=== PATIENT | female | born 1965 | race Caucasian/White ===

== ENCOUNTER 2019-04-11 13:27 | Emergency (ER) | payer SELFPAY ==
[2019-04-11 13:40] VITALS: BP 151/114; PULSE 84; RESP 18; TEMP 36.7; O2SAT 95; BMI 38.9
--- NOTE | 2019-04-11 14:04 | ED_ITS ---
HPI - General Adult General: Chief complaint: General Medical Stated complaint: Swollen legs Time Seen by Provider: 04/11/19 14:00 History of Present Illness: HPI narrative: Patient comes in today for concerns of being out of her medication for 2 to 3 weeks. Patient has trigeminal neuralgia and peripheral edema. Patient routinely takes Lasix 20 mg daily along with gabapentin 1200 mg 3 times a day. Patient reports no acute distress, but feels like she started to have a flareup of her trigeminal neuralgia. Patient appears well. Patient appears in mild to moderate pain. Associated symptoms: Reports headache(s) Review of Systems General: Reports: 10 or more systems reviewed and unremarkable except in HPI and below Neuro: Reports: headache Physical Exam Const: COMMON NORMALS: no apparent distress and oriented x3 GENERAL APPEARANCE: cooperative HENMT: COMMON NORMALS: normocephalic, external ears normal, EAC's normal, TM's normal bilaterally and external nose normal HEAD & SCALP: normal to inspection and normocephalic FACE & SINUS: normal facial exam (very mild left side facial drooping) NOSE: external nose normal GENERAL EAR: hearing not grossly impaired EXTERNAL EAR: Yes external ears normal EXTERNAL AUDITORY CANAL: EAC's normal TYMPANIC MEMBRANE: TM's normal bilaterally MOUTH: oral and palatal mucosa normal THROAT: posterior oropharynx normal Eye: COMMON NORMALS: PERRL and EOMs intact bilaterally PUPIL: Yes PERRL Neck/C-Spine: COMMON NORMALS: full ROM and no lymphadenopathy Lymph: LYMPHATIC: no lymphedema noted Chest: COMMONS NORMALS: inspection of chest normal and palpation of chest normal Resp: COMMON NORMALS: normal respiratory effort and clear to auscultation bilaterally AUSCULTATION: clear to auscultation bilaterally Cardio: COMMON NORMALS: regular rate and regular rhythm RATE: regular rate RHYTHM: regular rhythm GI: COMMON NORMALS: normal to inspection, nondistended, normoactive bowel sounds and non-tender : COMMON NORMALS: Yes no CVA tenderness BLADDER/KIDNEY EXAM: Yes no CVA tenderness Back/Pelvis: COMMON NORMALS: no CVA tenderness and thoracic and lumbar spine normal to inspection Extremity: COMMON NORMALS: normal to inspection GENERAL: No edema (mild sw elling, no pitting) Neuro: COMMON NORMALS: oriented x3, moves all extremities and no focal motor deficits Psych: COMMON NORMALS: mental status grossly normal and cooperative Skin: COMMON NORMALS: no rashes or lesions noted GENERAL SKIN EXAM: no rashes or lesions noted Course Vital Signs: Vital signs: Vital Signs Temperature 98.0 F 04/11/19 13:40 Pulse Rate 84 04/11/19 13:40 Respiratory Rate 18 04/11/19 13:40 Blood Pressure 151/114 04/11/19 13:40 Pulse Oximetry 95 04/11/19 13:40 MDM - General Adult MDM Narrative: Medical decision making narrative: Patient comes in today needing refills on her medication that she normally takes for her peripheral edema and trigeminal neuralgia. On exam patient respirations are even, lungs are clear to auscultation. Patient has some mild facial asymmetry with some left side facial drooping, that patient reports is normal. Differential diagnosis includes migraine headache, Mei's palsy, trigeminal neuralgia, malingering. Refills of medication were provided patient was recommended to follow-up with primary care. Patient reports understanding agrees to plan. Discharge Plan Discharge Patient Disposition: Home, Self-Care Clinical Impression: Trigeminal neuralgia of left side of face, Edema, peripheral Condition: Stable Prescriptions: New gabapentin 600 mg tablet 1,200 mg PO TID Qty: 120 RF: 0 furosemide 20 mg tablet 20 mg PO DAILY Qty: 30 RF: 0 Discharge Orders: Discharge Order (Routine); Ordered 04/11/19 Ordered By: Kerwin Read Discharge Diet: Usual diet Discharge Activity: Resume usual activity Activity Restrictions/Additional Instructions: Continue with routine medications Follow-up with primary care for further refills Return to ER for high fever or new concerns Coding Level of Care Code ED Grocery Sacker for Jordy Hamlin Exam Problem Focused
[2019-04-11 14:29] LABS: Basophils % 0.3 %; Eosinophils # 0.2 10^3/uL (0.0-0.8); Eosinophils % 3.8 %; Hematocrit 39.6 % (37.0-47.0); Hemoglobin 13.5 g/dL (11.5-15.3); Lymphocytes # 1.9 10^3/uL (0.8-4.8); Lymphocytes % 30.8 %; Mean Corpuscular HGB Conc 34.1 g/dL (30.0-36.0); Mean Corpuscular Hemoglobin 31.8 pg (28.0-34.0); Mean Corpuscular Volume 93.2 fL (81-99); Mean Platelet Volume 10.5 fL (7.4-10.4); Monocytes # 0.4 10^3/uL (0.2-0.9); Neutrophils # 3.5 10^3/uL (1.8-7.7); Neutrophils % 57.9 %; Nucleated Red Blood Cells % 0 %; Platelet Count 277 10^3/cmm (130-400); Red Blood Count 4.25 10^6/uL (4.1-5.3); Red Cell Distribution Width 13.3 % (12.1-15.1); White Blood Count 6.1 10^3/uL (4.0-10.0)
[2019-04-11] MEDS: gabapentin 400 mg Capsule 1200 MG PO (14:32)
[2019-04-11] MEDS: ketorolac 30 mg/mL INJ IM (14:34)
[2019-04-11 14:41] LABS: Alanine Aminotransferase 16 U/L (0-33); Albumin Level 4.4 g/dL (3.5-5.2); Alkaline Phosphatase 93 IU/L (35-105); Anion Gap 16.3 (5-19); Aspartate Amino Transferase 19 U/L (0-32); Blood Urea Nitrogen 18 mg/dL (6-20); Carbon Dioxide 26 mmol/L (22-29); Chloride 103 mmol/L (98-107); Globulin 2.5 g/dL (1.3-4.6); Glomerular Filtration Rate 87.9 mL/min (90-130); Glucose 128 mg/dL (74-109); NT Pro B Type Natriuretic Pept 170 pg/mL (0-125); Potassium 4.3 mmol/L (3.5-5.1); Sodium 141 mmol/L (136-145); Total Bilirubin 0.3 mg/dL (0.15-1.2); Total Protein 6.9 g/dL (6.6-8.7)
[2019-04-11 14:46] VITALS: PULSE 65; RESP 16; O2SAT 97
== END 2019-04-11 14:50 | disposition home or self-care (01) ==
PROVIDERS: Emergency Medicine; Emergency Provider Nurse Practitioner Family
DX: R60.0 Localized edema (principal); G50.0 Trigeminal neuralgia
CPT/HCPCS: 36415; 80053; 83880; 85025; 96372; 99281; 99283; J1885